=== PATIENT | female | born 2000 | race Caucasian/White ===

== ENCOUNTER 2022-06-14 08:02 | Inpatient (IN) ==
--- NOTE | 2022-06-07 14:10 | Anesthesiology Consultation ---
Date of Service June 07, 2022 Assessment & Plan (1) Encounter for pre-operative examination: Plan - COVID screening: Per slot attendant on 06/07/2022: Travel screen negative, no known COVID-19 positive contacts or current COVID-19 related symptoms in past 2 weeks. To surgeon's discretion if preop COVID testing is needed. - Case discussed with Dr. Malone who advised nothing additional needed from anesthesia standpoint. Chart Review Chart Review: Acceptable Risk for Surgery and Patient NOT seen in Pre Admission Testing History Surgery Operation Date: 06/14/22 10:05 Proposed Procedures p Repeat Section - Leroy Olivas MD Height/Weight Height: 5 ft 4 in Weight: 72.575 kg Allergies Allergy/AdvReac Type Severity Reaction Status Date / Time aspirin Allergy Unknown PROTEIN C Verified 06/07/22 13:35 DEFICIENCY BANDAID Allergy Mild Rash Uncoded 06/07/22 13:43 Medications Home Medications Medication Instructions Recorded Confirmed Last Taken albuterol sulfate 90 mcg/actuation 2 puff inhalation Q4 PRN Wheezing 08/10/18 06/07/22 Unknown aerosol inhaler (Ventolin HFA) prenat.vits,jorge,[id number] 1 tab PO DAILY 05/07/22 06/07/22 Unknown Past Medical History Medical History (Updated 06/07/22 @ 14:09 by Glenys Junior PA-C) ADHD Anxiety and depression Asthma controlled w/ prn inhaler OCD (obsessive compulsive disorder) Protein C deficiency lost to f/u with [facility] heme/onc since 2019 Past Family History Family History Other No family history of adverse response to anesthesia Past Surgical History Surgical History History of hand surgery RIGHT HAND Hx of section Social History Smoking Status: Former smoker tobacco type: cigarettes Smoking cigarettes per day: QUIT 2 YRS AGO Do You Dip or Chew Tobacco: No Hx Alcohol Use: No Hx Substance Use: No substance use type: does not use Substance Use Type Other:: smokes CBD oil
[~2022-06-14 08:02] MED LIST: CITRIC ACID/SODIUM CITRATE 15 ML UDC PO SCH; LACTATED RINGER'S 1,000 ML IV SCH; ceFAZolin 2,000 MG in SYRINGE 0 ML IV SCH; ceFAZolin 2000MG 2,000 MG/15 ML SYR IV SCH
--- NOTE | 2022-06-14 08:12 | History & Physical Bridge Note ---
Date of Service June 14, 2022 History & Physical Bridge Note I have examined the patient, reviewed the History & Physical and in the interval since the performance of the History & Physical I have noted the following changes of clinical significance: no changes noted
[2022-06-14 09:04] LABS: Basophils # (auto) 0.07 K/uL (0-0.2); Basophils % (auto) 0.6 %; Eosinophils # (auto) 0.09 K/uL (0-0.50); Eosinophils % (auto) 0.7 %; Hematocrit (blood only) 35.3 % (37.0-47.0); Hemoglobin 11.6 g/dl (12.0-16.0); Immature Granulocytes # (auto) 0.14 K/uL (0.01-0.20); Immature Granulocytes % (auto) 1.1 %; Lymphocytes # (auto) 2.79 K/uL (1.2-3.4); Lymphocytes % (auto) 22.9 %; Mean Corpuscular Hemoglobin 24.3 pg (25.0-34.0); Mean Corpuscular Hgb Conc 32.9 g/dL (32.0-36.0); Mean Platelet Volume 10.3 fL (9.4-12.4); Monocytes # (auto) 0.65 K/uL (0.11-0.59); Monocytes % (auto) 5.3 %; Neutrophils # (auto) 8.46 K/uL (1.40-6.50); Neutrophils % (auto) 69.4 %; Platelet Count 261 K/uL (130-400); RDW Coefficient of Variation 14.8 % (11.5-14.5); RDW Standard Deviation 39.5 fL (36.4-46.3); Red Blood Count 4.77 M/uL (4.20-5.40)
[2022-06-14] MEDS ORDERED: NALOXONE HCL 0.08 MG in SYRINGE 1.8 ML IV PRN (09:36)
[2022-06-14] MEDS ORDERED: HYDROmorphone INJ 0.5 MG/0.5 ML SYR IV PRN (09:36)
[2022-06-14] MEDS ORDERED: NALOXONE HCL 1 MG in SODIUM CHLORIDE 0.9% 1000ML 1,000 ML IV PRN (09:36)
[2022-06-14] MEDS ORDERED: NALBUPHINE HCL INJ 10 MG/ML AMP IV PRN (09:36)
[2022-06-14] MEDS ORDERED: LACTATED RINGER'S 500 ML IV PRN (09:36)
[2022-06-14] MEDS ORDERED: diphenhydrAMINE 50 MG/ML VIAL IV PRN (09:36)
[2022-06-14] MEDS ORDERED: ePHEDrine sulfate 50 MG/ML AMP IV PRN (09:36)
[2022-06-14] MEDS ORDERED: NALOXONE HCL 0.4 MG/1 ML VIAL/CARP IV PRN (09:36)
[2022-06-14] MEDS ORDERED: ONDANSETRON INJ 2 MG/ML 2 ML VIAL IV PRN (09:36)
[2022-06-14] MEDS ORDERED: MoRPHine SULFATE PF 1 MG/ML 10 ML AMP/VIAL INT SPINAL ONE (09:36)
[2022-06-14] MEDS ORDERED: MoRPHine SULFATE PF 1 MG/ML 10 ML AMP/VIAL ONE (09:41)
[2022-06-14] MEDS ORDERED: fentaNYL citrate PF 100 MCG/2 ML VIAL ONE (09:41)
[2022-06-14] MEDS ORDERED: OXYTOCIN 10 UNITS/ML 10ML VIAL ONE ×3 (09:41→09:46)
[2022-06-14] MEDS ORDERED: DC INTRASPINAL MORPHINE SCH (09:45)
[2022-06-14] MEDS ORDERED: SODIUM CHLORIDE 0.9% 1000ML 1,000 ML IV SCH (09:45)
[2022-06-14] MEDS ORDERED: NO NARCOTICS OR SEDATIVES SCH (09:45)
[2022-06-14] MEDS ORDERED: ONDANSETRON INJ 2 MG/ML 2 ML VIAL ONE (11:22)
[2022-06-14 11:24] LABS: Amphetamines+Metham, Urine Neg (Neg); Barbiturates, Urine Neg (Neg); Benzodiazepine, Urine Neg (Neg); Cocaine, Urine Neg (Neg); MDMA (Ecstacy), Urine Neg (Neg); Methadone, Urine Neg (Neg); Opiate, Urine Neg (Neg); Phencyclidine, Urine Neg (Neg)
[2022-06-14] MEDS ORDERED: ePHEDrine sulfate 50 MG/ML SYR ONE (11:47)
[2022-06-14] MEDS ORDERED: PHENYLEPHRINE 100MCG/ML 5ML SYR ONE (11:47)
--- NOTE | 2022-06-14 12:12 | Post Operative Brief Note ---
Immediate Post Op Note v1 Date of Surgery June 14, 2022 Pre & Post Diagnosis Operation Date: 06/14/22 10:05 Pre-Op Diagnosis: Repeat Section Post-Op Diagnosis: Same as pre-op I identified the patient and participated in the time-out.: Yes Procedure Operation Date: 06/14/22 10:05 Actual Procedures p Repeat Section; Live male child at 1133(Bilateral) - Leroy Olivas MD Surgeon Leroy Olivas MD Solar Designer/Installer Dr. Hurd Estimated Blood Loss 400 Findings Consistent with Post-Op Diagnosis Live male Apgars 8/9 weight pending Fluids LR 1200 ml. Specimens placenta Drains Silver Catheter (Inserted after spinal; patent and draining clear yellow urine during procedure. 50 ml.) Anesthesia Type Spinal Complications none Disposition Accompanied Patient To Recovery: Yes Overlapping Procedure I was present for: the critical portions of procedure. I was immediately available: during the entire case.
[2022-06-14] MEDS ORDERED: SENNA 8.6 MG TAB PO PRN (13:07)
[2022-06-14] MEDS ORDERED: LACTATED RINGER'S 1,000 ML IV SCH (13:07)
[2022-06-14] MEDS ORDERED: BENZOCAINE 20% AER SPR 82.5 GM CAN EXT PRN (13:07)
[2022-06-14] MEDS ORDERED: HYDROCORTISONE ACETATE 25 MG SUPP PR PRN (13:07)
[2022-06-14] MEDS ORDERED: ALBUTEROL HFA 8 GM INHALER INH PRN (13:07)
[2022-06-14] MEDS ORDERED: DIPHTHERIA/TETANUS/PERTUSSIS 0.5mL SYR/VIAL (Age 7+yrs) IM ONE (13:07)
[2022-06-14] MEDS ORDERED: MAGNESIUM HYDROXIDE SUSP 30 ML UDC PO PRN (13:07)
--- NOTE | 2022-06-14 13:42 | Anesthesiology Progress Note ---
Date of Service June 14, 2022 Anesthesia Post Procedure Vital Signs Vital Signs: Temp Pulse Resp BP Pulse Ox 06/14/22 13:00 18 06/14/22 13:00 18 06/14/22 13:00 18 06/14/22 12:50 16 06/14/22 12:40 16 06/14/22 12:30 16 06/14/22 12:20 16 06/14/22 12:10 16 06/14/22 12:00 36.5 C 18 06/14/22 08:46 20 06/14/22 13:40 69 135/67 06/14/22 13:38 75 99 06/14/22 13:33 62 97 06/14/22 13:28 65 99 06/14/22 13:23 57 L 99 06/14/22 13:18 75 99 06/14/22 13:13 59 L 99 06/14/22 13:09 71 81 L 06/14/22 13:08 73 87 L 06/14/22 13:03 66 100 06/14/22 12:58 61 94 06/14/22 12:56 55 L 119/78 06/14/22 12:53 57 L 96 06/14/22 12:50 53 L 117/65 06/14/22 12:48 54 L 87 L 06/14/22 12:43 60 95 06/14/22 12:38 70 99 06/14/22 12:37 58 L 93 06/14/22 12:36 58 L 120/69 06/14/22 12:33 67 100 06/14/22 12:27 62 92 06/14/22 12:28 60 97 06/14/22 12:26 60 123/66 06/14/22 12:23 68 100 06/14/22 12:19 67 90 06/14/22 12:18 63 100 06/14/22 12:16 60 128/60 06/14/22 12:13 80 100 06/14/22 12:08 74 100 06/14/22 12:05 57 L 121/78 06/14/22 08:31 78 132/79 Transfer of Care Handoff Completed per policy Notes Mental Status: alert / awake / arousable and participated in evaluation Patient Amnestic to Procedure: Yes Nausea / Vomiting: adequately controlled Pain: adequately controlled Airway Patency, RR, SpO2: stable & adequate BP & HR: stable & adequate Hydration State: stable & adequate Neuraxial Anesthesia: was administered and sensory block is resolving Anesthetic Complications: no major complications apparent and Pt Satisfied with anesthetic care
[2022-06-14] MEDS: OXYTOCIN 20 UNITS in LACTATED RINGER'S 1,000 ML IV SCH ×2 (14:59→23:21)
[2022-06-14] MEDS: KETOROLAC 30 MG/ML VIAL IV PRN ×2 (16:36→22:45)
--- NOTE | 2022-06-14 17:01 | Operative Report (OR) ---
DATE OF SURGERY: 06/14/2022. PREOPERATIVE DIAGNOSIS: Term elective repeat section. POSTOPERATIVE DIAGNOSIS: Term elective repeat section. PROCEDURE: Repeat section, low segment transverse. SURGEON: Leroy Olivas MD. MANAGER CULTURE: Dr. Hurd. ANESTHESIA: Spinal. CLINICAL HISTORY: The patient is a 22-year-old female, para 1-0-0-1, at 39 weeks and 6 days, admitte d for elective section, declining TOLAC. DESCRIPTION OF PROCEDURE: Under satisfactory spinal anesthesia, the patient was prepped and draped i n the usual sterile fashion. She was somewhat uncomfortable at the start of the procedure due to inc reased nausea. Low Pfannenstiel incision through a prior scar was then made entering into the abdomin al cavity, into the peritoneal cavity with successive layers without difficulty. Upon entering the p eritoneal cavity, there was noted to be some adhesions of the bladder, which were sharply dissected d own and lysed. A low segment transverse incision over the lower uterine segment was made. The incis ion was widened in the AP diameter. Amniotic sac was nicked, found to be clear. The infant was then delivered from the vertex presentation with the aid of fundal pressure, delivering a live male. The re was delayed cord clamping. Apgars were 8 and 9. weight was 6 pounds 13.6 ounces. There wa s a nuchal cord x1 reduced at time of delivery of the head. After the cord was doubly clamped and cu t and the baby handed to the float operator, cord blood was obtained. Placenta delivered spontaneously and intact and submitted to pathology for separate specimen. The uterus was then exteriorized. Rin g forceps were then placed on both angles in the inferior margin and another ring to dilate the cervi x. The uterus was normal in appearance. Uterine incision was closed in a double layer closure using 0 Vicryl suture in a continuous interlocking fashion followed by second imbricating layer using 0 Vi cryl suture. Tubes, ovaries bilaterally were found to be within normal limits. The initial sponge, needle, and instrument count were found to be correct. The uterus was placed back into the normal an atomical position. The contents of the pelvic and abdominal cavity were then irrigated to clear. No active bleeding was noted. The fascia was then reapproximated from both ends using 0 Vicryl suture in a continuous fashion. Subcuticular layer was then irrigated. Subcuticular space was closed with 3-0 plain suture and then irrigated and then fernandez were used to close the skin. No active bleeding was noted. The final sponge, needle and instrument counts were found to be correct. No complicatio ns. Silver draining 50 mL. Total fluids were 1200 mL and EBL was 400 mL. The patient was then placed supine on a stretcher and taken to recovery room in stable condition. Please note for the attestati on, Dr. Hurd was needed to provide assistance for retraction, pushing on the fundus and closure of t he uterus and abdomen. Job ID: [id number]
[2022-06-14] MEDS: SIMETHICONE 80 MG CHEW PO SCH ×3 (17:35→20:56)
[2022-06-14] MEDS: DOCUSATE SODIUM 100 MG CAP PO SCH (20:56)
[2022-06-15] MEDS ORDERED: PROMETHAZINE HCL 25 MG in SODIUM CHLORIDE 0.9% 50 ML IV PRN (03:36)
[2022-06-15] MEDS ORDERED: diphenhydrAMINE 50 MG/ML VIAL IV PRN (03:36)
[2022-06-15] MEDS ORDERED: KETOROLAC 30 MG/ML VIAL IV PRN (03:36)
[2022-06-15] MEDS ORDERED: MEPERIDINE HCL 50 MG/ML CARP IV PRN (03:36)
[2022-06-15] MEDS ORDERED: ONDANSETRON INJ 2 MG/ML 2 ML VIAL IV PRN (03:36)
[2022-06-15] MEDS ORDERED: diphenhydrAMINE Capsule 25 MG CAP PO PRN (03:36)
[2022-06-15] MEDS: oxyCODONE/ACETAMINOPHEN 5mg/325mg TAB PO PRN ×4 (04:37→23:37)
[2022-06-15 07:57] LABS: Basophils # (auto) 0.04 K/uL (0-0.2); Basophils % (auto) 0.4 %; Eosinophils # (auto) 0.09 K/uL (0-0.50); Eosinophils % (auto) 0.8 %; Hematocrit (blood only) 30.9 % (37.0-47.0); Hemoglobin 9.7 g/dl (12.0-16.0); Immature Granulocytes # (auto) 0.07 K/uL (0.01-0.20); Immature Granulocytes % (auto) 0.7 %; Lymphocytes # (auto) 2.19 K/uL (1.2-3.4); Lymphocytes % (auto) 20.5 %; Mean Corpuscular Hgb Conc 31.4 g/dL (32.0-36.0); Mean Corpuscular Volume 76.5 fL (80.0-100.0); Mean Platelet Volume 10.1 fL (9.4-12.4); Monocytes # (auto) 0.61 K/uL (0.11-0.59); Monocytes % (auto) 5.7 %; Neutrophils % (auto) 71.9 %; Platelet Count 203 K/uL (130-400); RDW Coefficient of Variation 14.6 % (11.5-14.5); RDW Standard Deviation 40.7 fL (36.4-46.3); Red Blood Count 4.04 M/uL (4.20-5.40)
[2022-06-15] MEDS: FERROUS SULFATE 325 MG TAB PO SCH (08:23)
[2022-06-15] MEDS: SIMETHICONE 80 MG CHEW PO SCH ×4 (08:23→20:32)
[2022-06-15] MEDS: PRENATAL VITAMIN 1 TAB PO SCH (08:23)
[2022-06-15] MEDS: ENOXAPARIN INJ 40 MG/0.4 ML SYR SQ SCH (08:23)
[2022-06-15] MEDS: DOCUSATE SODIUM 100 MG CAP PO SCH ×2 (08:23→20:32)
[2022-06-15] MEDS ORDERED: NON-FORMULARY MEDICATION (Prenat.Vits,Cal,Min-Iron-Folic Tablet) PO SCH (09:00)
[2022-06-15] MEDS ORDERED: ENOXAPARIN INJ 40 MG/0.4 ML SYR SQ SCH (09:00)
--- NOTE | 2022-06-15 09:26 | Obstetrical Progress Note ---
Date of Service June 15, 2022 Assessment & Plan (1) delivery delivered: POD #1 pt doing well no complaints Hx of Protein C def. on Lovenox SQ Results & Data Vital Signs (Past 12 Hours) Vital Signs Temp Pulse Resp BP Pulse Ox O2 Del Method 06/15/22 08:30 36.5 C 75 18 114/75 Room Air 06/15/22 03:00 18 100 06/15/22 02:00 18 96 06/15/22 03:22 36.6 C 80 18 106/72 100 Room Air 06/15/22 01:06 18 98 06/15/22 00:00 18 97 06/14/22 23:00 18 96 06/14/22 23:20 36.7 C 65 20 106/68 96 Room Air 06/14/22 22:03 18 99
[2022-06-15] MEDS: IBUPROFEN 600 MG TAB PO PRN ×3 (12:00→23:37)
[2022-06-15] MEDS ORDERED: bisacodyL 5 MG TABEC PO SCH (20:00)
[2022-06-16] MEDS: IBUPROFEN 600 MG TAB PO PRN ×2 (04:48→10:56)
[2022-06-16] MEDS: oxyCODONE/ACETAMINOPHEN 5mg/325mg TAB PO PRN ×2 (04:49→10:56)
[2022-06-16 06:46] LABS: Hematocrit (blood only) 30.6 % (37.0-47.0); Hemoglobin 9.6 g/dl (12.0-16.0)
[2022-06-16] MEDS: SIMETHICONE 80 MG CHEW PO SCH (08:37)
[2022-06-16] MEDS: PRENATAL VITAMIN 1 TAB PO SCH (08:37)
[2022-06-16] MEDS: DOCUSATE SODIUM 100 MG CAP PO SCH (08:38)
[2022-06-16] MEDS: FERROUS SULFATE 325 MG TAB PO SCH (08:38)
[2022-06-16] MEDS: ENOXAPARIN INJ 40 MG/0.4 ML SYR SQ SCH (08:40)
--- NOTE | 2022-06-16 10:05 | Obstetrical Progress Note ---
Date of Service June 16, 2022 Assessment & Plan (1) delivery delivered: Postop day #2 Pt doing well No complaints wishes to be discharged home Subjective Ambulation: ambulating normally Voiding: no voiding problems Passing Gas:: Yes Diet Tolerance:: clear liquids Lochia:: Small Feeding Type:: breast feeding Review of Systems All systems reviewed & are unremarkable except as noted in HPI & below Physical Exam Constitutional WD/WN, vitals as above well developed and well nourished Eyes PERRL, conjunctivae normal, anicteric sclerae ENMT external ear and nose normal, oropharynx normal Neck trachea midline, no thyromegaly Respiratory normal respiratory effort, lungs clear to auscultation Cardiovascular RRR, no murmur, no edema Chest (Breasts) normal inspection/palpation of breasts Gastrointestinal (Abdomen) normal bowel sounds, soft, nontender, no hepatosplenomegaly Musculoskeletal no cyanosis or clubbing, extremities motor strength 5/5 Skin no rashes, warm and dry + incision (Clean,dry and intact) Neurologic patellar DTR's 2+ bilat, sensation intact Psychiatric A+Ox3, euthymic affect Genitourinary normal external appearance Lymphatic no cervical or axillary lymphadenopathy Results & Data Vital Signs (Past 12 Hours) Vital Signs Temp Pulse Resp BP Pulse Ox O2 Del Method 06/15/22 23:25 36.4 C L 84 16 127/89 99 Room Air
[2022-06-16] MEDS ORDERED: bisacodyL 10 MG SUPP PR PRN (12:07)
[2022-06-17 15:37] LABS: Marijuana Quant, GCMS Urine 178 ng/mL (<5)
== END 2022-06-16 12:15 | disposition home or self-care (01) | DRG 788 ==
LOC: 4S1 08:02 → EDSTATUS 10:05 → 4E2 15:43

== ENCOUNTER 2023-09-24 05:50 | Inpatient (IN) ==
--- NOTE | 2023-09-23 09:33 | Anesthesiology Consultation ---
Date of Service September 23, 2023 Assessment & Plan (1) Encounter for pre-operative examination: Infectious disease screening: Per assessment on 09/23/23: No known recent infectious disease contacts or current infectious disease symptoms. Chart Review Chart Review: Acceptable Risk for Surgery and Patient NOT seen in Pre Admission Testing History Surgery Operation Date: 09/24/23 08:00 Proposed Procedures p Repeat Section, - Leroy Olivas MD s Bilateral Laparoscopic Salpingectomy - Leroy Olivas MD Height/Weight Height: 5 ft 2 in Weight: 74.389 kg Allergies Allergy/AdvReac Type Severity Reaction Status Date / Time aspirin Allergy Unknown Protein C Verified 09/23/23 09:30 Deficiency BANDAID Allergy Mild Rash Uncoded 09/23/23 08:47 Medications Home Medications Medication Instructions Recorded Confirmed Last Taken albuterol sulfate 90 mcg/actuation 2 puff inhalation Q4 PRN Wheezing 08/10/18 09/23/23 Unknown aerosol inhaler (Ventolin HFA) prenat.vits,jorge,[id number] 1 tab PO DAILY 05/07/22 09/23/23 09/12/23 08:00 citalopram 40 mg tablet (Celexa) 40 mg PO QAM 09/13/23 09/23/23 09/13/23 08:00 Past Medical History Medical History ADHD Anxiety and depression Asthma OCD (obsessive compulsive disorder) Protein C deficiency Follows with [facility] heme/onc since 2019 Past Family History Family History Other No family history of adverse response to anesthesia Past Surgical History Surgical History History of hand surgery Right hand Hx of section 2020, 2022 ([facility]) Nausea and vomiting after administration of anesthetic agent after second Social History Smoking Status: Former smoker tobacco type: cigarettes Smoking cigarettes per day: unsure Do You Dip or Chew Tobacco: No Hx Alcohol Use: No Hx Substance Use: No substance use type: does not use
[2023-09-24] MEDS ORDERED: SODIUM CHLORIDE 0.9% 250 ML IV PRN (05:59)
--- OUTSIDE RECORDS SUMMARY | 2023-09-24 06:00 | External Medical Summary | Summary of Care ---
Author Name Unknown Organization [facility] Address [address] [place] [address] Phone [phone] Care Team Providers Care Check Writer Name Role Phone Beatriz Wisdom DO Primary Care Provider Reason for Visit * Reason Comments Return Visit Encounter Details Date Type Department Care Team (Late st Contact Info) Description 09/18/2023 11:00 AM EDT Office Visit Gynecology/Obstetric [facility] [address] [place] [address] Cherri Erwin MD [address] [facility] [place] [phone] 38 weeks gestation of *; Protein C deficiency affecting (HCC); History of section complicating ; Short interval between pregnancies complicating , antepartum; Maternal asthma complicating ; Depression complicating , antepartum; Supervision of high risk in third trimester Allergies No known active allergiesdocumented as of this encounter (statuses as of 09/18/2023) Medications Medication Sig Dispensed Refills Start Date End Date Status 19 29-1 MG Oral Tablet ChewableIndications:En counter for supervision of other normal in first trimester Take 1 Tablet by mouth in the morning. 60 Tablet 5 03/13/2023 Active Ferrous Sulfate 325 (65 Fe) MG Oral Tablet (Feosol)Indications:An tepartum anemia complicating Take 1 Tablet by mouth in the morning and 1 Tablet before bedtime. 60 Tablet 3 07/15/2023 Active Ventolin HFA 108 (90 Base) MCG/ACT Inhalation Aerosol SolutionIndications:Mo derate persistent asthma without complication Inhale 2 Puffs by mouth every 4 hours as needed for Wheezing. 18 g 3 08/12/2023 Active Ondansetron HCl 4 MG Oral TabletIndications:Naus ea and vomiting during 1 tablet by mouth every 8 hours 30 Tablet 1 08/13/2023 Active Citalopram Hydrobromide 40 MG Oral Tablet (CeleXA)Indications:Se juan r episode of recurrent major depressive disorder, without psychotic features (HCC) Take 1 Tablet by mouth in the morning. 30 Tablet 3 09/12/2023 Active documented as of this encounter (statuses as of 09/18/2023) Active Problems Problem Noted Date Diagnosed Date Antepartum anemia complicating 024 Short interval between pregn ancies complicating , antepartum 06/10/2023 Overview: Last baby born 05/2022 , supervision, high-risk 05/02/2023 Food insecurity 03/31/2023 Overview: Per [facility] Protocol Depression complicating , antepartum History of section complicating pregnan cy 11/13/2021 Anxiety 09/01/2020 Protein C deficiency affecting 020 Overview: Patient has family history of blood clots and her mother was found with protein c deficiency. She at 25 or 26 years old due to complications from thrombotic event. Patient herself was tested for protein c function in 01/2018, which was 71. This was retested on 08/23/19 and was 58. Her most recent protein c function was 68 on 09/30/19. She follows hematology and was seen for evaluation on 09/30/19. Of note, she had negative anticardiolipin antibodies and factor v leiden mutation testing. Patient has not had personal history of VTE. Per 01/2020 [facility] recommendation with first : DISCUSSION AND RECOMMENDATIONS: 1. Reviewed that patients with protein C deficiency of less than 50% activity and no history of VTE have a 0.1% to 1.7% risk for developing VTE in . We do not recommend anticoagulation therapy during the antepartum stage of . Prophylactic anticoagulation therapy should be considered in the stage for patients with protein c deficiency of less than 50% and at discretion of hematology if the patient has additional risk factors (first-degree relative with a history of thrombotic event, obesity, prolonged immobility, or delivery). Last Assessment & Plan: DISCUSSION AND RECOMMENDATIONS: 1. Reviewed that patients with protein C deficiency of less than 50% activity and no history of VTE have a 0.1% to 1.7% risk for developing VTE in . For these patients we do not recommend anticoagulation therapy during the antepartum stage of . Prophylactic anticoagulation therapy should be considered in the stage if the patient has additional risk factors (first-degree relative with a history of thrombotic event, obesity, prolonged immobility, or delivery). Please also refer to Hematology's recommendations on 09/30/19. Severe episode of recurrent major depressive disorder, without psychotic features 09/13/2019 Protein C deficiency 01/23/2018 Family history of blood clots 01/21/2018 Moderate persistent asthma without complication 08/10/2009 Overview: Per Asthma Taxonomy ICD-10 update of inactive term Allergic rhinitis 05/29/2004 Estimated Date of Delivery Comme nts Yes 09/26/2023 Based on Ultraso und documented as of this encounter (statuses as of 09/18/2023) Resolved Problems Problem Noted Date Diagnosed Date Resolved Date delivery delivered 06/21/2020 10/19/2021 Depression complicating , antepartum 01/28/20 20 04/19/2020 Overview: Patient reports a stable mood on Zoloft at this time. She denies any suicidal or homicidal ideations. Last Assessment & Plan: Reviewed with patient that women with a history of depression are at risk for recurrence both during and/or the period. Discussed with patient that depression can and should be treated during when the benefits of treatment outweigh potential risks. complicated by tob acco use in second trimester 01/28/2020 01/28/2020 Routine follow-up 01/28/2020 10/19/2021 Overview: Patient has opted to decline genetic screening/testing for aneuploidy at this time. Maternal asthma complicating 01/28/2020 04/19/2020 Overview: Patient's asthma appears to be mild/intermittent. She last used her rescue inhaler approximately 1 month ago. Last Assessment & Plan: DISCUSSION: 1. We discussed that in general, asthma improves during for approximately one-third of women and worsens for approximately one-third. Most exacerbations occur between 24-36 weeks. 2. Discussed that as per the National Asthma Education and Prevention Program, it is safer for women with asthma to be treated with asthma medications than it is for them to have asthma symptoms and exacerbations. 3. As with non- patients, asthma management includes monitoring of lung function with pulmonary function testing, avoidance of triggers (such as tobacco smoke, mold, dust mite exposure, animal dander and cockroaches), and a step-care approach to pharmacologic therapy based on the severity of the patient s asthma. 4. Explained that asthma is generally managed the same in as in the non- patient, as asthma-control medications are considered safe in . If asthma is well-controlled with medications prior to , it is recommended to continue the same medication regimen during . A patient should seek medical care immediately if an asthma flare does not respond to therapy. 5. Those with well-controlled asthma can have excellent obstetric outcomes. However, poorly controlled or severe asthma may be associated with increased risk of prematurity, preeclampsia, growth restriction, and maternal morbidity and mortality. RECOMMENDATIONS: 1. Inhaled corticosteroids are the mainstay of therapy for all patients except those with intermittent asthma. If patients are routinely requiring rescue inhaler (such as albuterol, Ventolin, ProAir, Atrovent, or Proventil) use more than twice weekly, we recommend adding a low-dose inhaled corticosteroid. [Pulmicort (budesonide) is preferred for use in .] If patients are routinely requiring rescue inhaler use daily, we recommend adding a combined low-dose inhaled corticosteroid/long- acting beta-agonist [such as Advair (fluticasone/salmeterol) or Symbicort (budesonide/formoterol)] or a medium dose inhaled corticosteroid. Patient should discuss these treatment options with her primary OB provider or PCP. 2. Typically patients do not need stress dose steroids as long as they continue their usual dose perioperatively (or during labor) and as long as they do not have primary renal failure or other problems with the pituitary axis. For the remainder of patients, we recommend stress dose steroids in labor if they have required systemic corticosteroid treatment of greater than 20mg/day for 3 weeks or longer within the previous 4 weeks. Supervision of high-risk pre gnancy, unspecified trimester 10/20/2019 04/19/2020 Overview: 10/20/19 Problem Action Taken Date entered Entered by Date resolved Depression Discuss options with Provider Use of medication 10/20/2019 Preeti Ng RN Ongoing Headache Increase fluids(non-caffeinated) Take 2 Tylenol according to the directions. Do not exceed 3 grams (3000mg) in 24 hours If persistent or severe, call your provider 10/20/2019 Preeti Ng RN Ongoing Nausea and vomiting due to Nutrition Review 9 months booklet 10/20/2019 Preeti Ng RN Ongoing Poor dental hygiene encourage routine brushing and flossing Encouraged to schedule appointment 10/20/2019 Preeti Ng RN Ongoing Unknown LMP Dating via ultrasound 10/20/2019 Preeti Ng RN 10/20/19 Unplanned 1st Offer [facility] - will discuss at next appointment 10/20/19 Preeti Ng RN Ongoing Nutrition Currently receiving food stamps [facility] brochure given Will give Due Date letter once due date is established 10/20/2019 Preeti Ng RN 10/20/19 Education "A guide to help you prepare for your special delivery" booklet reviewed and given 10/20/2019 Preeti Ng RN 10/20/19 11/17/19 Problem Action Taken Date entered Entered by Date resolved Current needs or questions Patient denies having any current needs or questions 11/17/2019 12/15/19 Preeti Ng RN 11/17/19 12/15/19 12/15/19 History of tobacco use 01/21/201808/03 Overview: Patient reported tobacco cessation as of 09/2019. Last Assessment & Plan: Patient reports that she is discontinued the use of tobacco. She was congratulated and encouraged to continue. Varicella without complication 11/11/2012 01/21/2018 Closed fracture of distal phalanx of finger 12/19/2006 01/21/2018 EXTRINSIC ASTHMA, UNSPEC 05/29/2004 documented as of this encounter (statuses as of 09/18/2023) Immunizations Name Administration Dates Next Due DTaP Dipth/Tet/Acell Pertussis (Infanrix), Peds 05/06/2005,12/03/2001,06/01/2001,07/10,2000 HIB PRP-T, 4 Dose, PF, IM (H iberix, ActHib) 06/01/2001,2000,2000,03/26 HPV Vaccine, 4-Valent 11/10/2012 HPV Vaccine, 9-Valent 06/04/2018 Hepatitis B, 0-19 yrs 2000,2000,03/1999 IPV - Polio Virus Vaccine (Inact) 2005,2000,2000,03/26 MMR - Measles/Mumps/Rubella Vaccine 05/06/2005,0 06/22/2001 Meningococcal Conjugate Vacc ine (Menactra/Menveo) 11/10/2012 Pneumococcal Conjugate Vacci ne, 7 Valent 2000,2000,2000 Seasonal Influenza Intranasal 11/10/2012 Seasonal Influenza, PF, 6 M & above, IM , (FluLaval or Fluzone) 12/14/2019,10/21/2019(Deferred: Patient Refused),2018 Seasonal Influenza, QUAD, wi th Preserv, 6 mons & Above, 0.5 mL, IM 12/06/2016 TDAP (age 10 and older)(Boostrix) 07/11/2023,10/2022,03/15/2020 TDAP, Age 7 and older, IM (Adacel) 11/10/2012 Varicella Vaccine (Chicken Pox) 06/22/2001 documented as of this encounter Social History Tobacco Use Types Packs/Day Years Used Date Smoking Tobacco: Former Cigarettes Q uit: 10/13/2019 Smokeless Tobacco: Never Comments:2-3 a day Alcohol Use Standard Drinks/Week Comments Not Currently 0 (1 standard drink = 0.6 oz pur e alcohol) PHQ-2 Answer Date Recorded PHQ-2 Score 0 12/14/2019 Hunger Vital Sign Answer Date Recorded Within the past 12 months, y ou worried that your food would run out before you got the money to buy more. Sometimes true Within the past 12 months, t he food you bought just didn't last and you didn't have money to get more. Often true [place] Depression Scale Answer Date Recorded [place] Depression Scale Total 23 09/12/2023 The thought of harming myself has occurred to me . Hardly ever 09/12/2023 Childcare Answer Date Recorded Do you feel overwhelmed with taking care of a child, family member or friend? Yes 09/12/2023 Does your family need help f inding childcare? (Household - for ages 0-17 years) Not on file 09/12/2023 Clothing Answer Date Recorded Have you been unable to get clothing when it was really needed? Yes 09/12/2023 Is your family able to get c lothes or diapers when needed? (Household - for ages 0-17 years) Not on file 09/12/2023 Personal Safety Answer Date Recorded Do you feel unsafe or have concerns for your saf ety? No 09/12/2023 Do you have concerns for you r family's safety? (Household - for ages 0-17 years) Not on file 09/12/2023 Utilities Answer Date Recorded Do you have trouble paying y our heating, water, or electric bill? No 09/12/2023 Is your family able to pay t he heat, water, or electric bill? (Household - for ages 0-17 years) Not on file 09/12/2023 Does your family have access to good internet? (Household - for ages 0-17 years) Not on file 09/12/2023 Employment Status Answer Date Recorded Are you unemployed or without regular income? Ye s 09/12/2023 Does the household have a re gular source of income? (Household - for ages 0-17 years) Not on file 09/12/2023 Social Connections Answer Date Recorded How often do you feel lonely or isolated from th ose around you? Always 09/12/2023 Financial Resource Strain Answer Date R ecorded Do you have any trouble payi ng for your medications, or do you think you might in the future? No 09/12/2023 Does your family have troubl e paying for medicine? (Household - for ages 0-17 years) Not on file 09/12/2023 Transportation Needs Answer Date Record ed READ ONLY Do you have troubl e getting a ride to medical visits or work? Never True 09/12/2023 Does your family have a hard time getting a ride to doctors visits? (Household - for ages 0-17 years) Not on file 09/12/2023 Has lack of transportation k ept you from medical appointments, meetings, work, or from getting things needed for daily living? Check all that apply. No 09/12/2023 Do you (or your family) have trouble finding or paying for a ride (transportation)? (Household - for ages 0-17 years) Not on file 09/12/2023 Housing Stability Answer Date Recorded Do you currently live in a s helter or have no steady place to sleep at night? No 09/12/2023 READ ONLY Do you think you a re at risk of becoming homeless? No 09/12/2023 Does your family worry about paying for your home or becoming homeless? (Household - for ages 0-17 years) Not on file 0 09/12/2023 Are you homeless or worried that you might be in the future? No 09/12/2023 Are you (or your family) jey eless or worried that you might be in the future? (Household - for ages 0-17 years) Not on file Food Insecurity Answer Date Recorded Do you need food for this week? No 09/12/2023 Are you able to get enough f ood for your family? (Household - for ages 0-17 years) Not on file 09/12/2023 Does your family need food t his week? (Household - for ages 0-17 years) Not on file 09/12/2023 Do you always have enough fo od for your family? (Household - for ages 0-17 years) Not on file 09/12/2023 Estimated Date of Delivery Comme nts Yes 09/26/2023 Based on Ultraso und Sex and Gender Information Value Date Recorded Sex Assigned at Female 11/30/2021 2:10 PM EDT Gender Identity Female 11/30/2021 2:10 PM EDT Sexual Orientation Straight 11/30/2021 2: 10 PM EDT Job Start Date Occupation Industry Not on file Not on file Not on file documented as of this encounter Last Filed Vital Signs Vital Sign Reading Time Taken Comments Blood Pressure 120/64 09/18/2023 10:52 AM EDT Pulse - - Temperature - - Respiratory Rate - - Oxygen Saturation - - Inhaled Oxygen Concentration - - Weight 74.3 kg (163 lb 12.8 oz) 024 10:52 AM EDT Height 160 cm (5' 2.99") 09/18/2023 10: 52 AM EDT Body Mass Index 29.03 09/18/2023 10:52 AM EDT documented in this encounter Progress Notes * Cherri Erwin MD - 09/18/2023 11:05 AM EDT Maximiliano Burns is a 23 year old female here for her routine OB appointment at 38w6d. Patient was seen at [facility] labor and delivery over the weekend for contractions.. Her Estimated Date of Delivery: 09/26/23 REVIEW OF SYSTEMS: She affirms movement. Denies vaginal bleeding, LOF, reguklar contractions, N/V, headaches [place] Depression Scale: [place] Depression Scale Total: 17 [place] suicide question and score: Score of 3 = Yes, quite often. Score of 2 = Sometimes. Score of 1 = Hardly ever The thought of harming myself has occurred to me.: 2 PHYSICAL EXAM: Filed Vitals: 09/18/23 1052 BP: 120/64 Weight: 74.3 kg (163 lb 12.8 oz) Height: 1.6 m (5' 2.99") +FHT 128 bpm Fundal height 39 cm ASSESSMENT/PLAN: (O99.119, D68.59) Protein C deficiency affecting (HCC) Plan: No acute intervention is indicated at this time. (O34.219) History of section complicating Plan: Patient plans delivery with repeat section. (O09.899) Short interval between pregnancies complicating , antepartum Plan: Patient is at risk for anemia and low weight. (O99.519, J45.909) Maternal asthma complicating Plan: Patient states that her asthma is well controlled. (O99.340, F32.A) Depression complicating , antepartum Plan: Patient states that her mood is a " rollercoaster". Patient's Celexa was recent the increased. Patient refers improvement with the Celexa. (Z3A.38) 38 weeks gestation of (primary encounter diagnosis) Plan: - labor precautions and kick counts reviewed - RTO in 1 week Cherri Erwin MD documented in this encounter Nursing Notes * Roxane Gonzalez LPN - 09/18/2023 11:00 AM EDT 38w6d Feels much improvement with increased celexa dose. Was at [facility] L[facility] over the weekend with ctx, was discharged and encouraged to push fluids. documented in this encounter Plan of Treatment Upcoming Encounters Date Type Department Care Team (Late st Contact Info) Description 10/03/2023 10:30 AM EDT Office Visit Gynecology/Obstetrics [facility] [address] [place] [address] Alondra Miller CRNP [address] [place] [address] 11/04/2023 12:30 PM EDT Telemedicine Psychology [facility] [address] [place] [address] Ro Mora, MEDICAL ASSISTANT INSTRUCTOR [address] [place] [phone] 08/11/2024 2:10 PM EDT Office Visit Family Medicine [address] [place] [phone] Artis Beatriz [address] [place] [address] Health Maintenance Due Date Last Done Comments Pneumococcal Vaccine: Pediatrics (0 to 5 Years) and At-Risk Patients (6 to 64 Years) (1 of 2 - PCV) 01/18/2006 *SPIROMETRY ONCE FOR ASTHMA-ADULT 01/20/2019 Depression Monitoring 12/13/2020 12/14/2019 COVID-19 Vaccine ( season) 2022 05/18/2020, 04/18/2020 Influenza Vaccine (FLU shot) (#1) 2023 12/14/2019, 2018, 2018, Additional history exists Gonorrhea / Chlamydia Screen 03/06/2024, 11/30/2021, 10/25/2020, Additional history exists Pap Smear 11/30/2024 11/30/2021 IUD 7-Year 09/30/2027 09/29/2020 DTaP,Tdap,and Td Vaccines (10 - Td or Tdap) 07/10/2033 07/11/2023, 03/28/2022, 03/15/2020, Additional history exists Hepatitis B Vaccine Completed 2000, 2000, 2000 MENINGOCOCCAL (MENACTRA/MENVEO) Aged Out 11/10/2012, 11/10/2012 No longer eligibl e based on patient's age to complete this topic HPV (Gardasil) Vaccine Completed 06/04/2018, 2012 documented as of this encounter Medical Devices Not on filedocumented as of this encounter Visit Diagnoses Diagnosis 38 weeks gestation of - Primary state, incidental Protein C deficiency affecting (HCC) History of section complicating Previous delivery, unspecified as to episode of care or not applicable Short interval between pregnancies complicating , antepartum Supervision of other high-risk Maternal asthma complicating Other current maternal conditions classifiable elsewhere, complicating , childbirth, or the puerperium, unspecified as to episode of care Depression complicating , antepartum Mental disorders of mother, antepartum Supervision of high risk in third trimester Unspecified high-risk documented in this encounter Advance Directives * Full Code (Latest Code Status on File) Date Activated Date Inactivated Comments 06/18/2020 8:07 PM 06/21/2020 7:36 PM This order ref lects the patients wishes and were consensually agreed upon. Care Teams Check Writer Relationship Specialty Start Date End Date Beatriz Wisdom DO [address] [place] [address] [place] [id number] PCP - General Internal Medicine 08/12/23 documented as of this encounter
[2023-09-24] MEDS: LACTATED RINGER'S 1,000 ML IV SCH ×3 (06:20→11:01)
[2023-09-24] MEDS: ACETAMINOPHEN 500 MG TAB PO SCH (06:37)
[2023-09-24 06:50] LABS: Hemoglobin 11.2 g/dl (12.0-16.0); Mean Corpuscular Hemoglobin 25.7 pg (25.0-34.0); Mean Corpuscular Hgb Conc 32.9 g/dL (32.0-36.0); Mean Platelet Volume 10.6 fL (9.4-12.4); Platelet Count 194 K/uL (130-400); RDW Coefficient of Variation 14.6 % (11.5-14.5); RDW Standard Deviation 41.1 fL (36.4-46.3); Red Blood Count 4.36 M/uL (4.20-5.40); White Blood Count 9.52 K/ul (4.8-10.8)
[2023-09-24] MEDS ORDERED: OXYTOCIN 10 UNITS/ML VIAL ONE ×2 (07:00→09:22)
[2023-09-24] MEDS ORDERED: MoRPHine SULFATE PF 1 MG/ML 10 ML AMP/VIAL ONE (07:47)
[2023-09-24] MEDS ORDERED: fentaNYL citrate PF 100 MCG/2 ML VIAL ONE (07:47)
[2023-09-24] MEDS: CITRIC ACID/SODIUM CITRATE 15 ML UDC PO SCH (08:04)
[2023-09-24] MEDS: ceFAZolin 2000MG 2,000 MG/15 ML SYR IV SCH (08:24)
[2023-09-24] MEDS ORDERED: PHENYLEPHRINE 100MCG/ML 10ML SYR IV ONE (09:21)
[2023-09-24] MEDS ORDERED: HYDROmorphone INJ 0.5 MG/0.5 ML SYR IV PRN (09:35)
[2023-09-24] MEDS ORDERED: diphenhydrAMINE 50 MG/ML VIAL IV PRN ×2 (09:35→09:53)
[2023-09-24] MEDS ORDERED: PROMETHAZINE 12.5 MG/50.5 ML BAG IV PRN (09:35)
[2023-09-24] MEDS ORDERED: SENNA 8.6 MG TAB PO PRN (09:35)
[2023-09-24] MEDS ORDERED: MAGNESIUM HYDROXIDE SUSP 30 ML UDC PO PRN (09:35)
[2023-09-24] MEDS ORDERED: BENZOCAINE 20% SPRY 85 APPLN/85 GM CAN EXT PRN (09:35)
[2023-09-24] MEDS ORDERED: diphenhydrAMINE Capsule 25 MG CAP PO PRN (09:35)
[2023-09-24] MEDS ORDERED: CALCIUM CARBONATE 500 MG CHEWABLE TAB PO PRN (09:35)
[2023-09-24] MEDS ORDERED: ONDANSETRON INJ 2 MG/ML 2 ML VIAL IV PRN (09:35)
[2023-09-24] MEDS ORDERED: HYDROCORTISONE ACETATE 25 MG SUPP PR PRN (09:35)
--- NOTE | 2023-09-24 09:42 | Post Operative Brief Note ---
Immediate Post Op Note Date of Surgery September 24, 2023 Pre & Post Diagnosis Operation Date: 09/24/23 08:00 Pre-Op Diagnosis: intrauterine 39.5/7 desires repeat section and bilateral salpingectomy Post-Op Diagnosis: same I identified the patient and participated in the time-out.: Yes Procedure Operation Date: 09/24/23 08:00 Actual Procedures p Repeat Section, living female child at 0858(Bilateral) - Leroy Olivas MD s Bilateral Salpingectomy(Bilateral) - Leroy Olivas MD Surgeon Leroy Olivas MD Florist Manager Diana Montiel PA-C Estimated Blood Loss 805 (QBL) Findings Consistent with Post-Op Diagnosis Consistent with post operative diagnosis: Single IUP at 39 5/7 desires repeat section and bilateral salpingectomy. Apgars not available at time of this report. Fluids 1100 ml Drains Silver Catheter (inserted by Briana Mac RN without difficulty. Draining clear yellow urine, output to be monitored by anesthesia intraoperatively. Volume: 100 mL) Anesthesia Type Spinal Complications No maternal surgical complications Disposition Accompanied Patient To Recovery: Yes Disposition: L&D Overlapping Procedure I was present for: the critical portions of procedure. I was immediately available: during the entire case.
[2023-09-24] MEDS ORDERED: LACTATED RINGER'S 500 ML IV PRN (09:53)
[2023-09-24] MEDS ORDERED: NALBUPHINE HCL 5 MG in SYRINGE 0 ML IV PRN (09:53)
[2023-09-24] MEDS ORDERED: NALOXONE HCL 0.08 MG in SYRINGE 1.8 ML IV PRN (09:53)
[2023-09-24] MEDS ORDERED: NALOXONE HCL 1 MG in SODIUM CHLORIDE 0.9% 1,000 ML IV PRN (09:53)
[2023-09-24] MEDS ORDERED: ePHEDrine sulfate 50 MG/ML AMP IV PRN (09:53)
[2023-09-24] MEDS ORDERED: NALOXONE HCL 0.4 MG/1 ML VIAL/CARP IV PRN (09:53)
[2023-09-24] MEDS ORDERED: MoRPHine SULFATE PF 1 MG/ML 10 ML AMP/VIAL INT SPINAL ONE (09:53)
[2023-09-24] MEDS ORDERED: DC INTRASPINAL MORPHINE SCH (10:00)
[2023-09-24] MEDS ORDERED: NO NARCOTICS OR SEDATIVES SCH (10:00)
[2023-09-24] MEDS ORDERED: SODIUM CHLORIDE 0.9% 1,000 ML IV SCH (10:00)
[2023-09-24] MEDS: ONDANSETRON INJ 2 MG/ML 2 ML VIAL IV PRN (10:09)
[2023-09-24] MEDS: DIPHTHER/TETAN/PERTUS Vaccine (Tdap, Adol/Adult) 0.5mL IM ONE (10:43)
[2023-09-24] MEDS: ONDANSETRON INJ 2 MG/ML 2 ML VIAL ONE (11:02)
[2023-09-24] MEDS: ACETAMINOPHEN 325 MG TAB PO SCH (11:12)
[2023-09-24] MEDS: IBUPROFEN 600 MG TAB PO SCH (11:12)
[2023-09-24] MEDS: KETOROLAC 30 MG/ML VIAL IV SCH (11:13)
[2023-09-24] MEDS: OXYTOCIN 20 UNITS/LR 1,002 ML IV SCH (11:59)
--- NOTE | 2023-09-24 12:24 | Anesthesiology Progress Note ---
Date of Service September 24, 2023 Anesthesia Post Procedure Vital Signs Vital Signs: Temp Pulse Pulse Resp BP BP Pulse Ox 09/24/23 11:42 83 98 09/24/23 11:37 68 97 09/24/23 11:32 67 97 09/24/23 11:29 64 94 09/24/23 11:27 64 98 09/24/23 11:24 61 94 09/24/23 11:23 58 L 99 09/24/23 11:22 58 L 99 09/24/23 11:21 62 113/59 L 09/24/23 11:20 62 113/59 L 09/24/23 11:17 69 95 09/24/23 11:16 66 90 09/24/23 11:14 66 105/63 09/24/23 11:12 64 97 09/24/23 11:07 59 L 98 09/24/23 11:03 60 100/62 09/24/23 11:02 58 L 97 09/24/23 10:57 96 09/24/23 10:57 57 L 09/24/23 10:57 58 L 93 09/24/23 10:53 66 105/63 09/24/23 10:53 36.6 C 63 16 98 09/24/23 10:53 36.5 C 16 09/24/23 10:53 55 L 110/58 L 09/24/23 10:52 63 100 09/24/23 10:47 81 95 09/24/23 10:43 61 16 98 09/24/23 10:43 56 L 107/59 L 09/24/23 10:42 56 L 96 09/24/23 10:37 64 99 09/24/23 10:34 54 L 105/59 L 09/24/23 10:33 16 98 09/24/23 10:32 52 L 99 09/24/23 10:27 69 99 09/24/23 10:24 59 L 81/52 L 09/24/23 10:23 16 98 09/24/23 10:22 68 100 09/24/23 10:17 70 96 09/24/23 10:13 16 99 09/24/23 10:13 54 L 103/57 L 09/24/23 10:12 56 L 98 09/24/23 10:07 63 100 09/24/23 10:03 16 98 09/24/23 10:03 52 L 106/60 09/24/23 10:02 56 L 100 09/24/23 09:57 70 99 09/24/23 09:52 36.6 C 65 16 103/56 L 97 09/24/23 09:52 66 103/56 L 09/24/23 08:07 36.8 C 09/24/23 08:04 85 122/79 09/24/23 06:11 36.6 C 85 18 130/79 09/24/23 06:05 36.6 C 85 18 130/79 O2 Del Method 09/24/23 11:42 09/24/23 11:37 09/24/23 11:32 09/24/23 11:29 09/24/23 11:27 09/24/23 11:24 09/24/23 11:23 Room Air 09/24/23 11:22 09/24/23 11:21 09/24/23 11:20 09/24/23 11:17 09/24/23 11:16 09/24/23 11:14 09/24/23 11:12 09/24/23 11:07 09/24/23 11:03 09/24/23 11:02 09/24/23 10:57 09/24/23 10:57 09/24/23 10:57 09/24/23 10:53 09/24/23 10:53 Room Air 09/24/23 10:53 09/24/23 10:53 09/24/23 10:52 09/24/23 10:47 09/24/23 10:43 09/24/23 10:43 09/24/23 10:42 09/24/23 10:37 09/24/23 10:34 09/24/23 10:33 09/24/23 10:32 09/24/23 10:27 09/24/23 10:24 09/24/23 10:23 09/24/23 10:22 09/24/23 10:17 09/24/23 10:13 09/24/23 10:13 09/24/23 10:12 09/24/23 10:07 09/24/23 10:03 09/24/23 10:03 09/24/23 10:02 09/24/23 09:57 09/24/23 09:52 Room Air 09/24/23 09:52 09/24/23 08:07 09/24/23 08:04 09/24/23 06:11 09/24/23 06:05 Pain Intensity Lower Abdomen: Pain Intensity: 5 Transfer of Care Handoff Completed per policy Notes Mental Status: alert / awake / arousable Patient Amnestic to Procedure: Yes Nausea / Vomiting: adequately controlled Pain: adequately controlled Airway Patency, RR, SpO2: stable & adequate BP & HR: stable & adequate Hydration State: stable & adequate Neuraxial Anesthesia: was administered and sensory block is resolving Anesthetic Complications: no major complications apparent
[2023-09-24] MEDS: SIMETHICONE 80 MG CHEW PO SCH (12:58)
--- NOTE | 2023-09-24 13:12 | History & Physical Bridge Note ---
Date of Service September 24, 2023 History & Physical Bridge Note I have examined the patient, reviewed the History & Physical and in the interval since the performance of the History & Physical I have noted the following changes of clinical significance: no changes noted
[2023-09-24] MEDS ORDERED: Nursing to Pharmacy Communication SCH (14:15)
[2023-09-24] MEDS: DOCUSATE SODIUM 100 MG CAP PO SCH (20:24)
[2023-09-24] MEDS: PROMETHAZINE 6.25 MG/50.25 ML BAG IV PRN (20:53)
--- NOTE | 2023-09-24 20:57 | Operative Report ---
Post Operative Report Pre & Post Diagnosis Operation Date: 09/24/23 08:00 Pre-Op Diagnosis: intrauterine 39.5/7 desires repeat section and bilateral salpingectomy Post-Op Diagnosis: same I identified the patient and participated in the time-out.: Yes Procedure Operation Date: 09/24/23 08:00 Actual Procedures p Repeat Section, living female child at 0858(Bilateral) - Leroy Olivas MD s Bilateral Salpingectomy(Bilateral) - Leroy Olivas MD Surgeon Leroy Olivas MD [employer] Controller Diana Montiel PA-C Quantitative Blood Loss (QBL) 805 ml Findings Consistent with Post-Op Diagnosis live female Apgars 810 Fluids LR 1100 ml. Specimens placenta Drains Silver Anesthesia Type Spinal Complications none Disposition Accompanied Patient To Recovery: Yes Disposition: L&D Indications elective repeat voluntary sterilization Description of Procedure Under satisfactory spinal anesthesia the patient was prepped and prepped in usual sterile fashion. A timeout was called and antibiotics were given preop and the patient was identified prior to the start of the procedure. The patient was tested for adequacy of anesthesia. A low segment Pfannenstiel incision through her prior scar was then made entering into the abdominal cavity in successive layers. Upon entry into the peritoneal cavity a bladder flap was made and gently sharply dissected down low segment transverse incision over the lower uterine segment was made incision widening in the AP diameter of the amniotic sac was nicked and found to be slightly meconium stained. The infant was then delivered with the aid of fundal pressure delivering a live female Apgars were 8 1 and 10 at 1 5 and 10 minutes. The cord was doubly clamped and cut baby handed to papeterie table assembler present for resuscitation. Cord blood was obtained placenta delivered spontaneously and intact. The uterus was then exteriorized. The angles of the uterus were then grasped with ring forceps. Uterine segment was grasped with another ring forceps. Bladder blade was then reentered. Uterus was closed in a single layer closure of 0 Vicryl suture in a continuous interlocking fashion. Adequate hemostasis was maintained initial sponge needle instrument count were found to be correct the patient wished to have a sterilization procedure this was explained in depth to the patient. Right tube was then serially serially grasped with Monica clamps and then using the hand-held LigaSure instrument the right then subsequently the left tube were then removed. These were then submitted to pathology as separate specimens. The ovaries on both sides were found to be within normal limits the surgical sites on both the right and the left were inspected and found to be without any bleeding. Lower uterine segment was once more inspected the uterus was then placed back into the normal anatomical position. The muscle was reapproximated with 2 [id number] 0 Vicryl sutures. The fascia was then reapproximated from both ends using 0 Vicryl suture in a continuous fashion. Subcuticular space was then closed using 3-0 plain suture. And the skin was then reapproximated using 4-0 Monocryl suture. Steri-Strips Telfa and ABD dressing were then applied clear urine was noted from the Silver draining approximately 100 mL total fluids 1100 mL and the QBL was 805 mL. The final sponge needle instrument count was found to be correct the patient was then placed supine on the stretcher and she was moved to recovery room in stable condition. Please note that Diana Montiel was needed to provide assistance at surgery retraction to help with closure of abdomen and uterus to help with delivery of the baby I attest to the content of the Intraoperative Record and any orders documented therein. Any exceptions are noted below.
[2023-09-25 06:24] LABS: Basophils # (auto) 0.04 K/uL (0.00-0.20); Basophils % (auto) 0.4 %; Eosinophils # (auto) 0.06 K/uL (0.00-0.50); Eosinophils % (auto) 0.6 %; Hematocrit (blood only) 32.9 % (37.0-47.0); Hemoglobin 10.5 g/dl (12.0-16.0); Immature Granulocytes # (auto) 0.08 K/uL (0.01-0.20); Immature Granulocytes % (auto) 0.8 %; Lymphocytes # (auto) 2.21 K/uL (1.20-3.40); Lymphocytes % (auto) 22.3 %; Mean Corpuscular Hemoglobin 25.6 pg (25.0-34.0); Mean Corpuscular Hgb Conc 31.9 g/dL (32.0-36.0); Mean Corpuscular Volume 80.2 fL (80.0-100.0); Mean Platelet Volume 10.6 fL (9.4-12.4); Monocytes % (auto) 7.1 %; Neutrophils # (auto) 6.82 K/uL (1.40-6.50); Neutrophils % (auto) 68.8 %; Platelet Count 195 K/uL (130-400); RDW Coefficient of Variation 14.8 % (11.5-14.5); RDW Standard Deviation 42.8 fL (36.4-46.3); White Blood Count 9.91 K/ul (4.8-10.8)
[2023-09-25] MEDS: FERROUS SULFATE 325 MG TAB PO SCH (08:16)
[2023-09-25] MEDS: PRENATAL VITAMIN 1 TAB PO SCH (08:16)
[2023-09-25] MEDS: CITALOPRAM 40 MG TAB PO SCH (08:42)
--- NOTE | 2023-09-25 09:12 | Obstetrical Progress Note ---
Date of Service September 25, 2023 Assessment & Plan Admission and Anticipated Discharge Date Admission Date: September 24, 2023 OB Progress Note abdomen soft and non tender bandage removed incision is clean and dry no calf tenderness ambulating well passing gas vaginal bleeding scant hgb 10.5 Results & Data Vital Signs (Past 12 Hours) Vital Signs Temp Pulse Resp BP Pulse Ox O2 Del Method 09/25/23 08:11 36.3 C L 61 16 104/58 L 99 Room Air 09/25/23 05:00 36.6 C 68 18 100/61 100 Room Air 09/25/23 00:45 36.5 C 77 18 111/67 100 Room Air
[2023-09-25] MEDS: bisacodyL 5 MG TABEC PO SCH (20:13)
[2023-09-25] MEDS: oxyCODONE HCL IR 5 MG TAB (IMMEDIATE RELEASE) PO PRN (22:45)
[2023-09-26 06:28] LABS: Hematocrit (blood only) 30.7 % (37.0-47.0); Hemoglobin 9.7 g/dl (12.0-16.0)
[2023-09-26] MEDS: ACETAMINOPHEN 325 MG TAB PO PRN (08:18)
[2023-09-26 08:56] VITALS: BP 109/71; RESP 14; TEMP 97.9; O2SAT 99
[2023-09-26] MEDS ORDERED: bisacodyL 10 MG SUPP PR PRN (09:35)
--- NOTE | 2023-09-26 10:06 | Obstetrical Progress Note ---
Date of Service September 26, 2023 Assessment & Plan Admission and Anticipated Discharge Date Admission Date: September 24, 2023 Subjective Patient is seen and examined. She feels well, no complaints. Pain is under control with oral meds. Ambulating without dizziness Voiding without difficulty Tolerating regular diet with out N&V Flatus + Bleeding is minimal No fever/ chills/ CP/ SOB/ N&V/ Leg pain Breast feeding without problems Vital Signs Temp Pulse Resp BP Pulse Ox O2 Del Method 09/26/23 08:19 36.6 C 66 14 109/71 99 Room Air 09/26/23 04:45 36.5 C 64 18 116/73 98 Room Air Lab Results 09/24/23 09/25/23 09/26/23 Range/Units 06:29 05:55 06:11 WBC 9.52 9.91 (4.8-10.8) K/ul RBC 4.36 4.10 L (4.20-5.40) M/uL Hgb 11.2 L 10.5 L 9.7 L (12.0-16.0) g/dl Hct 34.0 L 32.9 L 30.7 L (37.0-47.0) % MCV 78.0 L 80.2 (80.0-100.0) fL MCH 25.7 25.6 (25.0-34.0) pg MCHC 32.9 31.9 L (32.0-36.0) g/dL RDW Std Deviation 41.1 42.8 (36.4-46.3) fL RDW Coeff of Shanell 14.6 H 14.8 H (11.5-14.5) % Plt Count 194 195 (130-400) K/uL MPV 10.6 10.6 (9.4-12.4) fL Immature Gran % (Auto) 0.8 % Neut % (Auto) 68.8 % Lymph % (Auto) 22.3 % Hudspeth % (Auto) 7.1 % Eos % (Auto) 0.6 % Baso % (Auto) 0.4 % Neut # (Auto) 6.82 H (1.40-6.50) K/uL Lymph # (Auto) 2.21 (1.20-3.40) K/uL Hudspeth # (Auto) 0.70 H (0.11-0.59) K/uL Eos # (Auto) 0.06 (0.00-0.50) K/uL Baso # (Auto) 0.04 (0.00-0.20) K/uL Immature Gran # (Auto) 0.08 (0.01-0.20) K/uL Treponema pallidum Ab Negative (Negative) Blood Type O Positive Antibody Screen NEGATIVE Crossmatch See Detail PE: General: Alert, orientedx3, NAD CVS: S1S2 RRR Lungs; CTAB Abd: soft, NT, ND, BS+, fundus firm, below Umbilicus Incision: Clean, dry, intact Perineum intact, Lochia rubra minimal Ext; NT, no edema AP: 23 yo s/p C Section, pod# 2 VSS Afebrile doing well Continue routine postop care Encourage ambulation, PO intake All questions were answered D/C home , f/u in office Results & Data Vital Signs (Past 12 Hours) Vital Signs Temp Pulse Resp BP Pulse Ox O2 Del Method 09/26/23 08:19 36.6 C 66 14 109/71 99 Room Air 09/26/23 04:45 36.5 C 64 18 116/73 98 Room Air
[2023-09-26] MEDS: IBUPROFEN 600 MG TAB PO PRN (10:48)
[2023-09-26 11:35] VITALS: PULSE 69
== END 2023-09-26 11:15 | disposition home or self-care (01) | DRG 784 ==
LOC: 4S1 05:50 → EDSTATUS 07:30 → 4E2 11:49
PROC: M.PPTLD (2023-09-24 08:00)